=== PATIENT | male | born 1960 | race African-American/Black ===

== ENCOUNTER 2019-09-08 10:57 | Emergency (ER) | payer SELFPAY ==
[~2019-09-08] VITALS: Ht 193 cm; Wt 80.0 kg
[2019-09-08] MEDS ORDERED: SODIUM CHLORIDE 0.9% 1,000 ML IV ONE (14:05)
[2019-09-08 14:53] LABS: BASOPHILS % 0.6 % (0.0-2.0); EOSINOPHILS % 0.3 % (0.0-5.0); HEMATOCRIT. 38.6 % (42.0-52.0); HEMOGLOBIN. 13.3 g/dL (14.0-18.0); MEAN CORPUSCULAR HEMOGLOBIN 34.1 pg (28.0-32.0); MEAN CORPUSCULAR VOLUME 98.6 fL (80.0-94.0); MEAN PLATELET VOLUME 6.9 fl (7.4-10.4); MONOCYTES % 6.6 % (2.0-8.0); NEUTROPHILS % 47.5 % (40.0-76.0); PLATELET 233 x1000/uL (130-400); RED BLOOD CELL COUNT 3.91 mill/uL (4.7-6.1); RED CELL DISTRIBUTION WIDTH 14.2 % (11.6-14.6)
[2019-09-08 15:00] LABS: CHLORIDE 104 mEq/L (98-107)
[2019-09-08 15:19] LABS: ETHANOL BLOOD 387 mg/dL
[2019-09-08 16:57] VITALS: BP 112/71
[2019-09-08 18:32] LABS: *AMPHETAMINES SCREEN URINE NEGATIVE (NEGATIVE); *BARBITURATES SCREEN URINE NEGATIVE (NEGATIVE); *BENZODIAZEPINES SCREEN URINE NEGATIVE (NEGATIVE); *COCAINE SCREEN URINE NEGATIVE (NEGATIVE)
[2019-09-08 18:33] LABS: CANNABINOID URINE SCREEN NEGATIVE (NEGATIVE); METHADONE URINE SCREEN NEGATIVE (NEGATIVE); OPIATES URINE SCREEN NEGATIVE (NEGATIVE); PHENCYCLIDINE URINE SCREEN NEGATIVE (NEGATIVE)
== END 2019-09-08 17:02 | disposition home or self-care (01) ==
LOC: ER 10:57
DX: F10.229 Alcohol dependence with intoxication, unspecified (principal); Y90.8 Blood alcohol level of 240 mg/100 ml or more
CPT/HCPCS: 36415; 80053; 80305; 80320; 85025; 99283; J7030; G0480

== ENCOUNTER 2022-08-06 11:15 | Inpatient (IN) | payer OTHER ==
[~2022-08-06] VITALS: Ht 188 cm; Wt 72.6 kg
[2022-08-06] MEDS ORDERED: KETOROLAC 30MG/ML VIAL IV STA (11:59)
[2022-08-06] MEDS ORDERED: SODIUM CHLORIDE 0.9% 1,000 ML IV ONE (12:00)
[2022-08-06 14:18] LABS: BASOPHILS % 0.4 % (0.0-2.0); EOSINOPHILS % 0.2 % (0.0-5.0); HEMATOCRIT. 47.2 % (42.0-52.0); LYMPHOCYTES % 28.7 % (20.0-50.0); MEAN CORPUSCULAR HEMOGLOBIN 33.3 pg (28.0-32.0); MEAN CORPUSCULAR VOLUME 98.5 fL (80.0-94.0); MEAN PLATELET VOLUME 7.1 fl (7.4-10.4); MONOCYTES % 4.1 % (2.0-8.0); NEUTROPHILS % 66.6 % (40.0-76.0); PLATELET 312 x1000/uL (130-400); RED BLOOD CELL COUNT 4.79 mill/uL (4.7-6.1)
[2022-08-06 14:27] LABS: CHLORIDE 102 mEq/L (98-107)
[2022-08-06 14:30] LABS: CLARITY URINE CLEAR (CLEAR); COLOR URINE YELLOW (YELLOW); KETONES URINE NEGATIVE (NEGATIVE); LEUKOCYTE ESTERASE URINE NEGATIVE (NEGATIVE); NITRITE URINE NEGATIVE (NEGATIVE); OCCULT BLOOD URINE NEGATIVE (NEGATIVE); PROTEIN URINE NEGATIVE (NEGATIVE); SPECIFIC GRAVITY URINE 1.005 (1.005-1.030); UROBILINOGEN URINE 0.2 E.U./dL (0.2-1.0)
[2022-08-06 14:45] LABS: ETHANOL BLOOD 392 mg/dL
[2022-08-06 16:06] LABS: *AMPHETAMINES SCREEN URINE NEGATIVE (NEGATIVE); *BARBITURATES SCREEN URINE NEGATIVE (NEGATIVE); *BENZODIAZEPINES SCREEN URINE NEGATIVE (NEGATIVE); *COCAINE SCREEN URINE NEGATIVE (NEGATIVE); CANNABINOID URINE SCREEN NEGATIVE (NEGATIVE); METHADONE URINE SCREEN NEGATIVE (NEGATIVE); OPIATES URINE SCREEN NEGATIVE (NEGATIVE); PHENCYCLIDINE URINE SCREEN NEGATIVE (NEGATIVE)
[2022-08-06 22:00] VITALS: BP 135/82
[2022-08-06] MEDS ORDERED: LORAZEPAM 1MG TABLET PO PRN (22:00)
[2022-08-06] MEDS ORDERED: ONDANSETRON HCL 4MG/2ML INJ IV PRN (22:00)
[2022-08-06] MEDS: PANTOPRAZOLE 40MG DR TABLET PO SCH (22:59)
[2022-08-06] MEDS: FOLIC ACID 1MG TABLET PO SCH (22:59)
[2022-08-06] MEDS: THIAMINE HCL 100MG TABLET PO SCH (22:59)
[2022-08-06] MEDS: MULTIVITAMINS,THER W-MINERALS TABLET PO SCH (22:59)
[2022-08-06] MEDS: HYDROCODONE/ACETAMINOPHEN 5/325MG TABLET PO PRN (23:01)
[2022-08-07 08:00] VITALS: BP 149/95
[2022-08-07] MEDS: THIAMINE HCL 100MG TABLET PO SCH (08:45)
[2022-08-07] MEDS: MULTIVITAMINS,THER W-MINERALS TABLET PO SCH (08:45)
[2022-08-07] MEDS: FOLIC ACID 1MG TABLET PO SCH (08:45)
[2022-08-07] MEDS: PANTOPRAZOLE 40MG DR TABLET PO SCH (08:45)
[2022-08-07] MEDS: HYDROCODONE/ACETAMINOPHEN 5/325MG TABLET PO PRN ×3 (08:46→23:54)
[2022-08-07 09:10] LABS: BASOPHILS % 0.2 % (0.0-2.0); EOSINOPHILS % 0.3 % (0.0-5.0); HEMATOCRIT. 39.1 % (42.0-52.0); HEMOGLOBIN. 13.3 g/dL (14.0-18.0); LYMPHOCYTES % 16.4 % (20.0-50.0); MEAN CORPUSCULAR HEMOGLOBIN 33.4 pg (28.0-32.0); MEAN PLATELET VOLUME 7.7 fl (7.4-10.4); MONOCYTES % 8.7 % (2.0-8.0); NEUTROPHILS % 74.4 % (40.0-76.0); PLATELET 280 x1000/uL (130-400); RED BLOOD CELL COUNT 3.99 mill/uL (4.7-6.1); RED CELL DISTRIBUTION WIDTH 13.9 % (11.6-14.6)
[2022-08-07 09:24] LABS: CHLORIDE 105 mEq/L (98-107)
[2022-08-07] MEDS ORDERED: INFLUENZA VACCINE 05/PF 0.5 ML SYRINGE IM ONE (10:00)
[2022-08-07 12:00] VITALS: BP 155/98
[2022-08-07] MEDS: AMLODIPINE 10MG TABLET PO SCH (14:05)
[2022-08-07 16:00] VITALS: BP 158/99
[2022-08-07] MEDS ORDERED: NALOXONE HCL 0.4MG/ML VIAL IV PRN (18:30)
[2022-08-07 19:41] VITALS: BP 187/110
[2022-08-07] MEDS ORDERED: MAGNESIUM/ALUMINUM HYDROXIDE/SIMETHICONE 30ML UDC PO PRN (20:00)
[2022-08-07] MEDS: CLONIDINE 0.1MG TABLET PO SCH (22:06)
[2022-08-07] MEDS: CHLORDIAZEPOXIDE 25MG CAPSULE PO SCH (22:06)
[2022-08-08 04:22] VITALS: BP 164/97
[2022-08-08] MEDS: CLONIDINE 0.1MG TABLET PO SCH (06:09)
[2022-08-08] MEDS: CHLORDIAZEPOXIDE 25MG CAPSULE PO SCH ×3 (06:09→21:13)
[2022-08-08 07:44] LABS: BASOPHILS % 0.2 % (0.0-2.0); EOSINOPHILS % 0.2 % (0.0-5.0); HEMATOCRIT. 37.8 % (42.0-52.0); LYMPHOCYTES % 11.3 % (20.0-50.0); MEAN CORPUSCULAR HEMOGLOBIN 33.3 pg (28.0-32.0); MEAN CORPUSCULAR VOLUME 96.9 fL (80.0-94.0); MEAN PLATELET VOLUME 7.6 fl (7.4-10.4); MONOCYTES % 6.4 % (2.0-8.0); NEUTROPHILS % 81.9 % (40.0-76.0); PLATELET 260 x1000/uL (130-400); RED CELL DISTRIBUTION WIDTH 13.6 % (11.6-14.6)
[2022-08-08 08:00] VITALS: BP 152/101
[2022-08-08] MEDS: PANTOPRAZOLE 40MG DR TABLET PO SCH (08:55)
[2022-08-08] MEDS: HYDROCODONE/ACETAMINOPHEN 5/325MG TABLET PO PRN ×2 (08:55→18:49)
[2022-08-08] MEDS: THIAMINE HCL 100MG TABLET PO SCH (08:56)
[2022-08-08] MEDS: MULTIVITAMINS,THER W-MINERALS TABLET PO SCH (08:56)
[2022-08-08] MEDS: FOLIC ACID 1MG TABLET PO SCH (08:56)
[2022-08-08] MEDS: AMLODIPINE 10MG TABLET PO SCH (08:56)
[2022-08-08 10:02] LABS: CHLORIDE 96 mEq/L (98-107)
[2022-08-08 12:00] VITALS: BP 134/77
[2022-08-08] MEDS ORDERED: AMLO5TAB4 MT ×2 (12:30)
[2022-08-08] MEDS ORDERED: FOLI-43 PO (13:02)
[2022-08-08] MEDS ORDERED: THIA100T72 PO (13:02)
[2022-08-08] MEDS ORDERED: TRAM50TA3 MT (13:02)
[2022-08-08] MEDS ORDERED: AMLO10TA80 PO (13:02)
[2022-08-08 13:10] LABS: *AMPHETAMINES SCREEN URINE NEGATIVE (NEGATIVE); *BARBITURATES SCREEN URINE NEGATIVE (NEGATIVE); *BENZODIAZEPINES SCREEN URINE NEGATIVE (NEGATIVE); *COCAINE SCREEN URINE NEGATIVE (NEGATIVE); CANNABINOID URINE SCREEN PRESUMTIVE POSITIVE (NEGATIVE); METHADONE URINE SCREEN NEGATIVE (NEGATIVE); OPIATES URINE SCREEN PRESUMTIVE POSITIVE (NEGATIVE); PHENCYCLIDINE URINE SCREEN NEGATIVE (NEGATIVE)
[2022-08-08] MEDS ORDERED: CLONIDINE 0.1MG TABLET PO PRN (14:45)
[2022-08-08 16:00] VITALS: BP 144/91
[2022-08-08 20:00] VITALS: BP 129/89
[2022-08-08] MEDS: HYDRALAZINE HCL 25MG TABLET PO SCH (21:00)
[2022-08-09 03:17] VITALS: BP 132/86
[2022-08-09] MEDS: HYDROCODONE/ACETAMINOPHEN 5/325MG TABLET PO PRN ×2 (06:45→17:06)
[2022-08-09] MEDS: CHLORDIAZEPOXIDE 25MG CAPSULE PO SCH ×3 (06:45→22:16)
[2022-08-09 08:00] VITALS: BP 129/84
[2022-08-09 08:24] LABS: HEMATOCRIT. 37.3 % (42.0-52.0); HEMOGLOBIN. 12.8 g/dL (14.0-18.0); MEAN CORPUSCULAR HEMOGLOBIN 33.1 pg (28.0-32.0); MEAN CORPUSCULAR VOLUME 96.2 fL (80.0-94.0); MEAN PLATELET VOLUME 7.8 fl (7.4-10.4); PLATELET 246 x1000/uL (130-400); RED BLOOD CELL COUNT 3.88 mill/uL (4.7-6.1); RED CELL DISTRIBUTION WIDTH 13.4 % (11.6-14.6)
[2022-08-09] MEDS ORDERED: SODIUM BICARBONATE 4% (2.4MEQ) 5ML VIAL IV ONE (08:37)
[2022-08-09] MEDS ORDERED: LIDOCAINE HCL 1% 10 MG/ML 10ML VIAL ONE (08:37)
[2022-08-09 08:48] LABS: CHLORIDE 93 mEq/L (98-107)
[2022-08-09] MEDS: THIAMINE HCL 100MG TABLET PO SCH (09:50)
[2022-08-09] MEDS: FOLIC ACID 1MG TABLET PO SCH (09:50)
[2022-08-09] MEDS: MULTIVITAMINS,THER W-MINERALS TABLET PO SCH (09:50)
[2022-08-09] MEDS: HYDRALAZINE HCL 25MG TABLET PO SCH ×2 (09:50→22:15)
[2022-08-09] MEDS: PANTOPRAZOLE 40MG DR TABLET PO SCH (09:50)
[2022-08-09] MEDS: AMLODIPINE 10MG TABLET PO SCH (09:51)
[2022-08-09 12:00] VITALS: BP 158/97
[2022-08-09 13:20] LABS: PLATELET ESTIMATE NORMAL
[2022-08-09 16:00] VITALS: BP 122/82
[2022-08-09 20:00] VITALS: BP_SYST 124; BP_SYST 125; BP_DIAS 81; BP_DIAS 82
[2022-08-09] MEDS: FAMOTIDINE 20MG TABLET PO SCH (22:16)
[2022-08-10] VITALS (7 sets, daily range): BP systolic 116–136; BP diastolic 76–91
[2022-08-10] MEDS: CHLORDIAZEPOXIDE 25MG CAPSULE PO SCH ×3 (06:31→21:06)
[2022-08-10] MEDS: THIAMINE HCL 100MG TABLET PO SCH (08:45)
[2022-08-10] MEDS: MULTIVITAMINS,THER W-MINERALS TABLET PO SCH (08:45)
[2022-08-10] MEDS: HYDRALAZINE HCL 25MG TABLET PO SCH ×2 (08:45→21:06)
[2022-08-10] MEDS: FOLIC ACID 1MG TABLET PO SCH (08:45)
[2022-08-10] MEDS: AMLODIPINE 10MG TABLET PO SCH (08:45)
[2022-08-10] MEDS: FAMOTIDINE 20MG TABLET PO SCH ×2 (08:46→21:06)
[2022-08-10] MEDS: HYDROCODONE/ACETAMINOPHEN 5/325MG TABLET PO PRN ×2 (16:12→22:55)
[2022-08-11] VITALS (7 sets, daily range): BP systolic 106–130; BP diastolic 58–80
[2022-08-11] MEDS: CHLORDIAZEPOXIDE 25MG CAPSULE PO SCH ×3 (06:00→21:16)
[2022-08-11] MEDS: THIAMINE HCL 100MG TABLET PO SCH (10:10)
[2022-08-11] MEDS: FOLIC ACID 1MG TABLET PO SCH (10:10)
[2022-08-11] MEDS: MULTIVITAMINS,THER W-MINERALS TABLET PO SCH (10:10)
[2022-08-11] MEDS: FAMOTIDINE 20MG TABLET PO SCH ×2 (10:10→21:16)
[2022-08-11] MEDS: AMLODIPINE 10MG TABLET PO SCH (10:11)
[2022-08-11] MEDS: HYDRALAZINE HCL 25MG TABLET PO SCH ×2 (10:12→21:00)
[2022-08-11] MEDS: HYDROCODONE/ACETAMINOPHEN 5/325MG TABLET PO PRN (17:01)
[2022-08-12] VITALS: BP 131/71
[2022-08-12 04:00] VITALS: BP 138/85
[2022-08-12] MEDS: CHLORDIAZEPOXIDE 25MG CAPSULE PO SCH ×3 (05:45→21:19)
[2022-08-12 08:00] VITALS: BP 141/83
[2022-08-12] MEDS: MULTIVITAMINS,THER W-MINERALS TABLET PO SCH (08:56)
[2022-08-12] MEDS: HYDRALAZINE HCL 25MG TABLET PO SCH ×2 (08:56→21:20)
[2022-08-12] MEDS: THIAMINE HCL 100MG TABLET PO SCH (08:56)
[2022-08-12] MEDS: AMLODIPINE 10MG TABLET PO SCH (08:56)
[2022-08-12] MEDS: FAMOTIDINE 20MG TABLET PO SCH ×2 (08:56→21:19)
[2022-08-12] MEDS: FOLIC ACID 1MG TABLET PO SCH (08:57)
[2022-08-12 12:00] VITALS: BP 138/81
[2022-08-12 16:00] VITALS: BP 130/85
[2022-08-12 20:00] VITALS: BP 144/84
[2022-08-13] VITALS: BP 144/80
[2022-08-13] MEDS: ACETAMINOPHEN 325MG TABLET PO PRN ×3 (02:14→20:24)
[2022-08-13 06:34] LABS: HEMOGLOBIN. 11.3 g/dL (14.0-18.0); MEAN CORPUSCULAR HEMOGLOBIN 32.8 pg (28.0-32.0); MEAN CORPUSCULAR VOLUME 95.6 fL (80.0-94.0); MEAN PLATELET VOLUME 7.5 fl (7.4-10.4); PLATELET 398 x1000/uL (130-400); RED BLOOD CELL COUNT 3.45 mill/uL (4.7-6.1); RED CELL DISTRIBUTION WIDTH 13.8 % (11.6-14.6)
[2022-08-13 07:08] LABS: CHLORIDE 94 mEq/L (98-107)
[2022-08-13 08:00] VITALS: BP 126/82
[2022-08-13] MEDS: HYDRALAZINE HCL 25MG TABLET PO SCH ×2 (08:52→20:38)
[2022-08-13] MEDS: FAMOTIDINE 20MG TABLET PO SCH ×2 (08:52→20:39)
[2022-08-13] MEDS: THIAMINE HCL 100MG TABLET PO SCH (08:52)
[2022-08-13] MEDS: AMLODIPINE 10MG TABLET PO SCH (08:52)
[2022-08-13] MEDS: FOLIC ACID 1MG TABLET PO SCH (08:52)
[2022-08-13] MEDS: MULTIVITAMINS,THER W-MINERALS TABLET PO SCH (08:52)
[2022-08-13 11:08] LABS: PLATELET ESTIMATE NORMAL
[2022-08-13 12:00] VITALS: BP 107/65
[2022-08-13] MEDS ORDERED: POTASSIUM CHLORIDE 20MEQ TABLET SR PO NR (12:00)
[2022-08-13 16:00] VITALS: BP 110/74
[2022-08-13 20:00] VITALS: BP 96/54
[2022-08-13] MEDS ORDERED: CEFTRIAXONE 1,000 MG in DEXTROSE 5% WATER 50 ML IV SCH (20:00)
[2022-08-14] VITALS: BP 108/81
[2022-08-14 04:00] VITALS: BP 119/78
[2022-08-14 08:00] VITALS: BP 118/77
[2022-08-14 08:09] LABS: HEMATOCRIT. 33.8 % (42.0-52.0); HEMOGLOBIN. 11.8 g/dL (14.0-18.0); MEAN CORPUSCULAR HEMOGLOBIN 33.5 pg (28.0-32.0); MEAN CORPUSCULAR VOLUME 96.1 fL (80.0-94.0); MEAN PLATELET VOLUME 7.7 fl (7.4-10.4); PLATELET 444 x1000/uL (130-400); RED BLOOD CELL COUNT 3.52 mill/uL (4.7-6.1); RED CELL DISTRIBUTION WIDTH 13.6 % (11.6-14.6)
[2022-08-14] MEDS: THIAMINE HCL 100MG TABLET PO SCH (08:38)
[2022-08-14] MEDS: FOLIC ACID 1MG TABLET PO SCH (08:38)
[2022-08-14] MEDS: AMLODIPINE 10MG TABLET PO SCH (08:38)
[2022-08-14] MEDS: HYDRALAZINE HCL 25MG TABLET PO SCH (08:38)
[2022-08-14] MEDS: FAMOTIDINE 20MG TABLET PO SCH (08:38)
[2022-08-14] MEDS: MULTIVITAMINS,THER W-MINERALS TABLET PO SCH (08:38)
[2022-08-14 09:23] LABS: CLARITY URINE CLEAR (CLEAR); COLOR URINE YELLOW (YELLOW); KETONES URINE NEGATIVE (NEGATIVE); LEUKOCYTE ESTERASE URINE NEGATIVE (NEGATIVE); NITRITE URINE NEGATIVE (NEGATIVE); OCCULT BLOOD URINE NEGATIVE (NEGATIVE); PH URINE 5.5 (4.5-8.0); PROTEIN URINE TRACE (NEGATIVE)
[2022-08-14 09:30] LABS: CHLORIDE 98 mEq/L (98-107)
[2022-08-14 10:55] LABS: PLATELET ESTIMATE INCREAS
[2022-08-14 11:48] VITALS: BP 105/71
[2022-08-14 12:00] VITALS: BP 105/71
[2022-08-14 16:00] VITALS: BP 126/77
== END 2022-08-14 17:39 | DRG 115 ==
LOC: ER 11:15 → ENRESERV 19:59 → 6EST 21:49
PROVIDERS: ADMIT Internal Medicine; ATTEND Internal Medicine
PROC: 0S9D3ZZ Drainage of Left Knee Joint, Percutaneous Approach (ICD-10-PCS; principal; 2022-08-10)
DX: S02.2XXA Fracture of nasal bones, initial encounter for closed fracture (principal); G93.41 Metabolic encephalopathy; D62 Acute posthemorrhagic anemia; E87.1 Hypo-osmolality and hyponatremia; M25.462 Effusion, left knee; Z20.822 Contact with and (suspected) exposure to COVID-19; F10.229 Alcohol dependence with intoxication, unspecified; H26.9 Unspecified cataract; E87.6 Hypokalemia; R04.0 Epistaxis; K08.9 Disorder of teeth and supporting structures, unspecified; E87.5 Hyperkalemia; Z87.891 Personal history of nicotine dependence; Y90.8 Blood alcohol level of 240 mg/100 ml or more; W18.30XA Fall on same level, unspecified, initial encounter; Y92.89 Other specified places as the place of occurrence of the external cause; Y99.8 Other external cause status; Y93.89 Activity, other specified
CPT/HCPCS: 20611; 36415; 70486; 71045; 80048; 80053; 80076; 80305; 80320; 81003; 83735; 84100; 84145; 84484; 85025; 87426; 89060; 93970; 97110; 97162; 99285; J0696; J1885; J3490; J7030; J7060; G0480

== ENCOUNTER 2024-07-18 12:05 | Emergency (ER) | payer MEDICAID ==
[~2024-07-18] VITALS: Ht 172.7 cm; Wt 82.0 kg
[~2024-07-18 12:05] MED LIST: AMLO10TA80 PO; FOLI-43 PO; THIA100T72 PO; TRAM50TA3 MT
[2024-07-18 12:10] VITALS: BP 116/82; PULSE 72; RESP 16; O2SAT 97
[2024-07-18 13:05] LABS: BASOPHILS % 0.6 % (0.0-2.0); DIFFERENTIAL COMMENT 0; EOSINOPHILS % 0.5 % (0.0-5.0); HEMATOCRIT. 39.2 % (42.0-52.0); LYMPHOCYTES % 43.4 % (20.0-50.0); MEAN CORPUSCULAR HEMOGLOBIN 33.1 pg (28.0-32.0); MEAN CORPUSCULAR HGB CONC 33.1 g/dL (31.0-37.0); MEAN CORPUSCULAR VOLUME 100.1 fL (80.0-94.0); MONOCYTES % 8.1 % (2.0-8.0); NEUTROPHILS % 47.4 % (40.0-76.0); PLATELET 224 x1000/uL (130-400); RED BLOOD CELL COUNT 3.92 mill/uL (4.7-6.1); RED CELL DISTRIBUTION WIDTH 15.6 % (11.6-14.6)
[2024-07-18 13:11] LABS: CHLORIDE 108 mEq/L (98-107); POTASSIUM 4.8 mEq/L (3.5-5.1); SODIUM 139 mEq/L (136-145)
[2024-07-18 13:12] LABS: CALCIUM 9.6 mg/dL (8.7-10.4); CARBON DIOXIDE 25 mEq/L (21-32)
[2024-07-18 13:17] LABS: CREATININE 0.9 mg/dL (0.6-1.3); GLUCOSE 112 mg/dL (70-105); UREA NITROGEN BLOOD 10 mg/dL (9-23)
[2024-07-18 13:19] LABS: ALANINE AMINOTRANSFERASE 24 IU/L (10-49); ALBUMIN 4.5 g/dL (3.2-4.8); ASPARTATE AMINOTRANSFERASE 66 IU/L (<34); BILIRUBIN TOTAL 0.2 mg/dL (0.1-1.0); PROTEIN TOTAL 8.1 g/dL (6.0-8.3)
[2024-07-18] MEDS ORDERED: IBUP-2029 MT (19:04)
== END 2024-07-18 19:40 | disposition home or self-care (01) ==
LOC: ER 12:05
DX: F10.129 Alcohol abuse with intoxication, unspecified (principal); Z98.890 Other specified postprocedural states; Y90.9 Presence of alcohol in blood, level not specified
CPT/HCPCS: 36415; 80053; 83735; 85025; 93005; 99284

== ENCOUNTER 2024-12-19 12:45 | Emergency (ER) | payer MEDICAID, OTHER ==
[~2024-12-19] VITALS: Ht 175.3 cm; Wt 90.0 kg
[~2024-12-19 12:45] MED LIST changes: -AMLO10TA80 PO; -FOLI-43 PO; +NIFE-33 MT; -THIA100T72 PO; -TRAM50TA3 MT
[2024-12-19 12:52] VITALS: O2SAT 98
[2024-12-19 13:50] VITALS: BP 108/68; PULSE 92; RESP 18; TEMP 36.6; O2SAT 98
[2024-12-19 14:16] LABS: CHLORIDE 104 mEq/L (98-107); POTASSIUM 4.3 mEq/L (3.5-5.1); SODIUM 138 mEq/L (136-145)
[2024-12-19 14:17] LABS: CARBON DIOXIDE 20 mEq/L (21-32)
[2024-12-19 14:22] LABS: CREATININE 0.9 mg/dL (0.6-1.3)
[2024-12-19 14:23] LABS: GLUCOSE 94 mg/dL (70-105); UREA NITROGEN BLOOD 10 mg/dL (9-23)
[2024-12-19 14:31] LABS: BASOPHILS % 0.4 % (0.0-2.0); EOSINOPHILS % 0.5 % (0.0-5.0); HEMATOCRIT. 39.7 % (42.0-52.0); LYMPHOCYTES % 35.2 % (20.0-50.0); MEAN CORPUSCULAR HEMOGLOBIN 31.8 pg (28.0-32.0); MEAN CORPUSCULAR HGB CONC 32.7 g/dL (31.0-37.0); MEAN CORPUSCULAR VOLUME 97.3 fL (80.0-94.0); MEAN PLATELET VOLUME 7.6 fl (7.4-10.4); NEUTROPHILS % 58.9 % (40.0-76.0); PLATELET 208 x1000/uL (130-400); RED BLOOD CELL COUNT 4.08 mill/uL (4.7-6.1); RED CELL DISTRIBUTION WIDTH 13.6 % (11.6-14.6)
[2024-12-19 14:32] LABS: ETHANOL BLOOD 395 mg/dL (<10)
== END 2024-12-19 17:12 | disposition home or self-care (01) ==
LOC: ER 12:45
DX: F10.129 Alcohol abuse with intoxication, unspecified (principal); I10 Essential (primary) hypertension; Z79.899 Other long term (current) drug therapy; Y90.8 Blood alcohol level of 240 mg/100 ml or more
CPT/HCPCS: 36415; 80048; 80320; 85025; 99284; G0480

== ENCOUNTER 2025-03-25 10:56 | Emergency (ER) | payer MEDICAID ==
[~2025-03-25] VITALS: Ht 172.7 cm; Wt 82.0 kg
[2025-03-25 10:58] VITALS: O2SAT 100
[2025-03-25 15:39] VITALS: BP 122/87; PULSE 70; RESP 16; TEMP 36.7; O2SAT 99
== END 2025-03-25 15:40 | disposition home or self-care (01) ==
LOC: ER 11:05
DX: S09.8XXA Other specified injuries of head, initial encounter (principal); F10.129 Alcohol abuse with intoxication, unspecified; I10 Essential (primary) hypertension; Z79.899 Other long term (current) drug therapy; Y90.9 Presence of alcohol in blood, level not specified
CPT/HCPCS: 99284